=== PATIENT | female | born 1990 | race Caucasian/White ===

== ENCOUNTER 2025-06-11 12:22 | Outpatient (CLI) | payer BC | END 2025-06-11 12:23 | disposition home or self-care (01) | LOC: SCSMRI 12:22 | PROVIDERS: ATTEND Orthopaedic Surgery | DX: M25.362 Other instability, left knee (principal); S83.512A Sprain of anterior cruciate ligament of left knee, initial encounter; S82.142A Displaced bicondylar fracture of left tibia, initial encounter for closed fracture; M25.462 Effusion, left knee ==